=== PATIENT | female | born 2000 | race Hispanic/Latino ===

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

== ENCOUNTER 2021-06-07 02:25 | Emergency (ER) | payer OTHER ==
[~2021-06-07] VITALS: Ht 160 cm; Wt 77.1 kg
[2021-06-07 02:57] LABS: APPEARANCE,URINE Clear (CLEAR); BILIRUBIN,URINE Negative (NEGATIVE); COLOR,URINE Yellow (YELLOW); GLUCOSE, URINE (UA) Negative (NEGATIVE); KETONES,URINE Negative (NEGATIVE); LEUKOCYTE ESTERASE ,URINE Negative (NEGATIVE); NITRATE,URINE Negative (NEGATIVE); OCCULT BLOOD,URINE Negative (NEGATIVE); PH,URINE 5.5 (5.0-8.0); PROTEIN,URINE Negative (NEGATIVE)
[2021-06-07 03:53] LABS: BASOPHILS % (AUTO) 0.9 % (0.0-5.0); HEMATOCRIT 38.8 % (36-48); MEAN CORPUSCULAR HEMOGLOBIN 26.9 pg (27.0-33.0); MEAN CORPUSCULAR HGB CONC 33.2 g/dL (32.0-36.0); MEAN CORPUSCULAR VOLUME 80.8 fL (80-100); MONOCYTES % (AUTO) 5.7 % (3.0-13.0); NEUTROPHILS % (AUTO) 43.1 % (40.0-77.0); PLATELET COUNT (AUTO) 304 K/uL (130-400); RED CELL DISTRIBUTION WIDTH 13.6 % (11.0-15.5)
[2021-06-07] MEDS ORDERED: FAMOTIDINE 20MG VIAL IV ONE (04:00)
[2021-06-07] MEDS ORDERED: ONDANSETRON 4MG INJ IVP ONE (04:00)
[2021-06-07] MEDS ORDERED: 0.9%NACL 1000ML 1,000 ML IV ONE (04:00)
[2021-06-07] MEDS ORDERED: PANTOPRAZOLE 40 MG/VIAL IVP ONE (04:00)
[2021-06-07] MEDS ORDERED: METOCLOPRAMIDE 10 MG/2 ML VIAL IVP ONE (04:00)
[2021-06-07 04:01] LABS: CREATININE 0.8 mg/dL (0.5-1.5); POTASSIUM 3.4 mmol/L (3.5-5.1)
[2021-06-07 04:05] LABS: ALBUMIN 3.6 g/dL (3.5-5.0); BILIRUBIN,TOTAL 0.2 mg/dL (0.2-1.0)
[2021-06-07] MEDS ORDERED: IOHEXOL 350 MG/ML 100ML INFUS..BTL IV ONE (04:24)
[2021-06-07 06:19] VITALS: BP 103/60
[2021-06-07] MEDS ORDERED: ONDA4TAB10 PO (06:21)
[2021-06-07] MEDS ORDERED: METO-296 PO (06:21)
[2021-06-07] MEDS ORDERED: DICY20TA2 PO (06:21)
[2021-06-07] MEDS ORDERED: PANT40TA PO (06:21)
== END 2021-06-07 06:33 | disposition home or self-care (01) ==
LOC: EDH 02:25
DX: R10.31 Right lower quadrant pain (principal); E86.9 Volume depletion, unspecified; R11.2 Nausea with vomiting, unspecified; R07.89 Other chest pain; Z88.1 Allergy status to other antibiotic agents
CPT/HCPCS: 36415; 74177; 80053; 81003; 81025; 83690; 85025; 93005; 96361; 96374; 96375; 99285; C9113; J2405; J2765; J3490; J7030; Q9967

== ENCOUNTER 2021-11-09 18:41 | Emergency (ER) | payer MEDICAID ==
[~2021-11-09] VITALS: Ht 160 cm; Wt 77.1 kg
[~2021-11-09 18:41] MED LIST: DICY20TA2 PO; METO-296 PO; ONDA4TAB10 PO; PANT40TA PO
[2021-11-09] MEDS ORDERED: IBUPROFEN 600 MG TABLET PO ONE (20:30)
[2021-11-09] MEDS ORDERED: DIPH25 PO (20:46)
[2021-11-09] MEDS ORDERED: PRED20TA3 PO (20:46)
[2021-11-09 20:59] VITALS: BP 118/78
== END 2021-11-09 21:07 | disposition home or self-care (01) ==
LOC: EDH 18:41
DX: S60.221A Contusion of right hand, initial encounter (principal); T78.40XA Allergy, unspecified, initial encounter; F41.9 Anxiety disorder, unspecified; F32.A Depression, unspecified; F43.10 Post-traumatic stress disorder, unspecified; Z88.1 Allergy status to other antibiotic agents; Z79.899 Other long term (current) drug therapy; X58.XXXA Exposure to other specified factors, initial encounter; Y93.89 Activity, other specified; Y92.89 Other specified places as the place of occurrence of the external cause; Y99.8 Other external cause status
CPT/HCPCS: 73130

== ENCOUNTER 2021-11-15 03:15 | Emergency (ER) | payer MEDICAID, OTHER ==
[~2021-11-15] VITALS: Ht 160 cm; Wt 83.5 kg
[~2021-11-15 03:15] MED LIST changes: +DIPH25 PO; +PRED20TA3 PO
[2021-11-15] MEDS ORDERED: LIDOCAINE 1%-EPI 1:100,000 20 ML VIAL IJ SCH (03:30)
[2021-11-15] MEDS ORDERED: IBUPROFEN 600 MG TABLET PO ONE (03:30)
[2021-11-15] MEDS ORDERED: LIDOCAINE HCL 400MG/20ML VIAL ONE (03:32)
[2021-11-15 03:44] VITALS: BP 121/68
[2021-11-15] MEDS ORDERED: PRED50TA2 PO (04:07)
[2021-11-15] MEDS ORDERED: IBUP-2071 PO (04:07)
[2021-11-15] MEDS ORDERED: DIPH50 PO (04:07)
== END 2021-11-15 04:30 | disposition home or self-care (01) ==
LOC: EDH 03:15
DX: B34.9 Viral infection, unspecified (principal); L02.416 Cutaneous abscess of left lower limb; Z20.822 Contact with and (suspected) exposure to COVID-19; R21 Rash and other nonspecific skin eruption; Z79.1 Long term (current) use of non-steroidal anti-inflammatories (NSAID); Z79.52 Long term (current) use of systemic steroids; Z88.1 Allergy status to other antibiotic agents
CPT/HCPCS: 99283; 10060; 87635; 87804 ×2; C9803; J3490; 10061

== ENCOUNTER 2022-03-06 20:19 | Emergency (ER) | payer OTHER ==
[~2022-03-06] VITALS: Ht 160 cm; Wt 77.1 kg
[~2022-03-06 20:19] MED LIST changes: +DIPH50 PO; +IBUP-2071 PO; +PRED50TA2 PO
[2022-03-06] MEDS ORDERED: ORPHENADRINE CITRATE 30 MG/ML ML IVP ONE (20:30)
[2022-03-06] MEDS ORDERED: MORPHINE 4 MG SYG IVP ONE (20:30)
[2022-03-06] MEDS ORDERED: ONDANSETRON 4MG INJ IV ONE (20:30)
[2022-03-06 20:52] LABS: APPEARANCE,URINE CLEAR (CLEAR); BILIRUBIN,URINE NEGATIVE (NEGATIVE); COLOR,URINE LIGHT-YELLOW (YELLOW); GLUCOSE, URINE (UA) NEGATIVE (NEGATIVE); KETONES,URINE NEGATIVE (NEGATIVE); LEUKOCYTE ESTERASE ,URINE NEGATIVE Leu/uL (NEGATIVE); NITRATE,URINE NEGATIVE (NEGATIVE); OCCULT BLOOD,URINE SMALL (NEGATIVE); PROTEIN,URINE NEGATIVE (NEGATIVE); UROBILINOGEN,URINE 0.2 mg/dL (0.2-1.0)
[2022-03-06 20:55] LABS: BACTERIA,URINE RARE /HPF (None Seen); HCG,QUALITATIVE URINE NEGATIVE (NEGATIVE); MUCUS,URINE RARE LPF (None Seen); SQUAMOUS EPITHELIAL CELL,UR FEW /HPF (0-2)
[2022-03-06] MEDS ORDERED: CYCL10TA16 PO (21:47)
[2022-03-06] MEDS ORDERED: TRAM50TA4 PO (21:47)
[2022-03-06] MEDS ORDERED: IBUP-2077 PO (21:47)
[2022-03-06 22:21] VITALS: BP 110/74
== END 2022-03-06 22:20 | disposition home or self-care (01) ==
LOC: EDH 20:19
DX: M54.6 Pain in thoracic spine (principal); M54.2 Cervicalgia; R51.9 Headache, unspecified; J45.909 Unspecified asthma, uncomplicated; Z79.1 Long term (current) use of non-steroidal anti-inflammatories (NSAID); Z79.52 Long term (current) use of systemic steroids; Z88.1 Allergy status to other antibiotic agents
CPT/HCPCS: 99284; 96374; 72131; 96375; 81001; 81025; J2405; J2270; J2360